=== PATIENT | female | born 1965 | race Two or more races ===

== ENCOUNTER 2018-07-13 19:57 | Emergency (ER) | payer MEDICAID, OTHER ==
[~2018-07-13] VITALS: Ht 160 cm; Wt 90.7 kg
[2018-07-13] MEDS ORDERED: ONDANSETRON ODT 4 MG TAB PO ONE (20:15)
[2018-07-13] MEDS ORDERED: KETOROLAC TROMETH 60MG/2ML VIAL IM ONE (20:15)
[2018-07-13] MEDS ORDERED: KETOROLAC TROMETH 30 MG/ML 1ML VIAL IV ONE (20:30)
[2018-07-13] MEDS ORDERED: ONDANSETRON HCL 4 MG/2 ML VIAL IV ONE ×3 (20:30→22:45)
[2018-07-13 20:41] LABS: Basophils # (auto) 0.1 uL; Eosinophils # (auto) 0.6 uL; Eosinophils % (auto) 4.5 % (0.0-7.0); Hematocrit 37.9 % (36.0-46.0)
[2018-07-13 20:43] LABS: Basophils % (auto) 0.7 % (0.0-2.0); Hemoglobin 11.9 g/dL (12.2-16.2); Lymphocytes % (auto) 31.2 % (10.0-50.0); Mean Corpuscular Hemoglobin 23.6 pg (28.0-32.0); Mean Corpuscular Hgb Conc. 31.4 g/dL (32.0-36.0); Mean Corpuscular Volume 75.1 fL (80.0-100.0); Monocytes # (auto) 0.9 uL; Monocytes % (auto) 6.6 % (0.0-12.0); Neutrophils # (auto) 7.4 uL; Nucleated Red Blood Cells % 0.1 %; Platelet Count (auto) 340 10^3/uL (140-450); Red Blood Cells 5.05 10^6/uL (4.0-5.20); Red Cell Distribution Width 15.9 % (11.8-14.3); White Blood Cell 12.9 10^3/uL (4.4-10.8)
[2018-07-13 20:55] LABS: Albumin 3.6 g/dL (3.4-5.0); BUN/Creatinine Ratio 37.3; Calcium 8.6 mg/dL (8.5-10.1)
[2018-07-13 20:58] LABS: Bilirubin, Total 0.2 mg/dL (0.2-1.0); Total Protein 7.4 g/dL (6.4-8.2)
[2018-07-13 20:59] LABS: Urine Bacteria FEW /hpf (None Seen); Urine Blood Negative /uL (Negative); Urine Mucus FEW (None Seen); Urine Specific Gravity 1.021 (1.001-1.035); Urine WBC 1 /hpf (0 - 5)
[2018-07-13] MEDS ORDERED: MORPHINE SULFATE 4 MG/ML SYR/VIAL IV ONE ×2 (21:00→22:45)
[2018-07-14] MEDS ORDERED: LORazepam 2MG/ML-1ML VIAL IV ONE
[2018-07-14 03:36] VITALS: BP 141/80
[2018-07-14] MEDS ORDERED: HYDROcodone-ACET 5/325MG TAB PO ONE (04:15)
== END 2018-07-14 05:55 | disposition home or self-care (01) ==
LOC: ER 20:00
DX: K57.90 Diverticulosis of intestine, part unspecified, without perforation or abscess without bleeding (principal); Z88.2 Allergy status to sulfonamides
CPT/HCPCS: 36415; 74176; 80053; 81001; 82150; 82962; 85025; 96374; 96375; 96376; 99285; J1885; J2060; J2270; J2405

== ENCOUNTER 2023-02-11 09:37 | Emergency (ER) | payer MEDICAID, OTHER ==
[~2023-02-11] VITALS: Ht 160 cm; Wt 103.0 kg
[2023-02-11 10:29] LABS: Urine Bacteria FEW /hpf (None Seen); Urine Blood Negative /uL (Negative); Urine Specific Gravity 1.028 (1.001-1.035); Urine WBC 1 /hpf (0 - 5)
[2023-02-11] MEDS ORDERED: ACETAMINOPHEN 500 MG TAB PO STA (11:17)
[2023-02-11 11:26] VITALS: BP 144/79
[2023-02-11] MEDS ORDERED: ACET500T58 PO (12:10)
[2023-02-11] MEDS ORDERED: NITR-87 PO (12:10)
== END 2023-02-11 12:46 | disposition home or self-care (01) ==
LOC: ER 09:37
DX: R30.0 Dysuria (principal); K57.90 Diverticulosis of intestine, part unspecified, without perforation or abscess without bleeding; Z88.2 Allergy status to sulfonamides
CPT/HCPCS: 74176; 81001; 82962